=== PATIENT | female | born 1985 | race Caucasian/White ===

== ENCOUNTER 2016-09-13 01:37 | Emergency (ER) | payer OTHER ==
--- NOTE | 2016-09-13 02:29 | ED NURSING NOTES ---
Clinical Report - Nurses [facility] [address] [place] [address] 09/13/2016 1:38 Patient: VIOLETTA GARZA TRIAGE Triage time 0145. Acuity: LEVEL 3. Chief Complaint: FALL while walking, onto the ground and ice. HODA COMA SCORE: [place] Coma Scale: 15- eyes open spontaneously (4); best verbal response- oriented x 4 (5); best motor response- obeys commands (6). --01:58 Tammy Irby R.N. 01:45 09/13/16. BP: deferred. HR: 85. RR: 18 (unlabored). O2 saturation: 99% on room air. Temp: 98.1 F (oral). Pain level now: 9/10. Additional comments: unable to obtain bp. --01:58 Tammy Irby R.N. Weight: 85.7 kg stated. Height/Length: 68 inches Per Patient. BMI: 28.7. --01:45 Tammy Irby R.N. Medications None. --01:55 Tammy Irby R.N. Allergies Sulfa Antibiotics. --01:55 Tammy Irby R.N. Penicillins. --01:55 Tammy Irby R.N. Medication/allergy information source: the patient. --01:58 Tammy Irby R.N. History Arrived by private vehicle. Historian: patient. Accompanied by friend. Primary physician (none). ( pt c/o right rib pain x 1 day. pt states a friend gave her a big hug and picked her up, heard a pop in your ribs, then fell later outside on right side.). This occurred yesterday. Occurred (by a river). No loss of consciousness. Treatment GEOMORPHOLOGY TEACHER: Ice and took ibuprofen. Trauma activation: Pre-hospital notification of patient arrival was not received. PAST MEDICAL HX: Tetanus status: up-to-date. Last normal menstrual period- Aug 07, 2016. Currently . confirmed with home test. SOCIAL HX: Light tobacco smoker (cigarette)- less than 1/2 a pack per day. No alcohol use or drug use. ABUSE ASSESSMENT: No report of abuse. NUTRITIONAL RISK ASSESSMENT: The nutritional risk assessment revealed no deficiencies. FUNCTIONAL ASSESSMENT: Functional assessment: no impairments noted. LEARNING NEEDS ASSESSMENT: The learning needs assessment revealed no barriers. SKIN INTEGRITY ASSESSMENT: Skin integrity risk assessment completed. No skin integrity risk identified. --01:58 Tammy Irby R.N. PROBLEMS: no known problems. ADDITIONAL SURGERIES: Carpal Tunnel Surgery. . Dilatation & Curettage. Laparoscopy. Tubal Ligation. --01:56 Tammy Irby R.N. Interventions ID band on patient. To treatment room. --01:58 Tammy Irby R.N. PHYSICAL ASSESSMENT right rib pain, no bruising noted. pt tender on palpation. GENERAL / NEURO / PSYCH: Alert. Oriented X 4. Appears in pain. RESPIRATORY: Respirations not labored. EXTREMITIES: Extremities exhibit normal ROM. Neuro-vascular status intact to the extremity. SKIN: Skin intact. Skin is warm and dry. --02:02 Tammy Irby R.N. NURSING PROGRESS NOTES Patient gowned. Two patient identifiers checked. Call light placed in reach. Side rails up x 1. Bed placed in lowest position. Brakes of bed on. Patient ready for evaluation. --01:58 Tammy Irby R.N. 02:10 09/13/2016 Hydrocodone-APAP (Hydrocodone-Acetaminophen) PO 5/325 mg Tablets 2 tab given. Allergies verified, confirmed 5 rights and sedative warning given to the patient. --02:11 Penny Olivia R.N. DISPOSITION / DISCHARGE Departure time: 0244. Condition at departure: improved. No learning barriers present. Discharge instructions provided and reviewed with the patient. Reviewed medication(s). Prescription(s) given to the patient (Hydrocodone/APAP). Patient verbalized understanding. Written instructions provided in Pashto. The patient was discharged by the physician. She was discharged home and accompanied by collection clerk. She left the Emergency Department ambulatory and via private vehicle. Bedspread Inspector driving. Medication list reviewed and validated with the patient. --02:46 Tammy Irby R.N. 02:41 09/13/16. BP: deferred. HR: 88. RR: 18 (unlabored). O2 saturation: 96% on room air. Temp: 98 F (oral). Pain level now: 01/19. Additional comments: pt refused bp. --02:46 Tammy Irby R.N. Locked/Released at 09/13/2016 5:15 by Tammy Irby R.N.
--- NOTE | 2016-09-13 02:29 | ED NURSING NOTES ---
Clinical Report - Nurses [facility] [address] [place] [address] 09/13/2016 1:38 Patient: VIOLETTA GARZA TRIAGE Triage time 0145. Acuity: LEVEL 3. Chief Complaint: FALL while walking, onto the ground and ice. HODA COMA SCORE: [place] Coma Scale: 15- eyes open spontaneously (4); best verbal response- oriented x 4 (5); best motor response- obeys commands (6). --01:58 Tammy Irby R.N. 01:45 09/13/16. BP: deferred. HR: 85. RR: 18 (unlabored). O2 saturation: 99% on room air. Temp: 98.1 F (oral). Pain level now: 9/10. Additional comments: unable to obtain bp. --01:58 Tammy Irby R.N. Weight: 85.7 kg stated. Height/Length: 68 inches Per Patient. BMI: 28.7. --01:45 Tammy Irby R.N. Medications None. --01:55 Tammy Irby R.N. Allergies Sulfa Antibiotics. --01:55 Tammy Irby R.N. Penicillins. --01:55 Tammy Irby R.N. Medication/allergy information source: the patient. --01:58 Tammy Irby R.N. History Arrived by private vehicle. Historian: patient. Accompanied by friend. Primary physician (none). ( pt c/o right rib pain x 1 day. pt states a friend gave her a big hug and picked her up, heard a pop in your ribs, then fell later outside on right side.). This occurred yesterday. Occurred (by a river). No loss of consciousness. Treatment SEE SUPERVISOR: Ice and took ibuprofen. Trauma activation: Pre-hospital notification of patient arrival was not received. PAST MEDICAL HX: Tetanus status: up-to-date. Last normal menstrual period- Aug 07, 2016. Currently . confirmed with home test. SOCIAL HX: Light tobacco smoker (cigarette)- less than 1/2 a pack per day. No alcohol use or drug use. ABUSE ASSESSMENT: No report of abuse. NUTRITIONAL RISK ASSESSMENT: The nutritional risk assessment revealed no deficiencies. FUNCTIONAL ASSESSMENT: Functional assessment: no impairments noted. LEARNING NEEDS ASSESSMENT: The learning needs assessment revealed no barriers. SKIN INTEGRITY ASSESSMENT: Skin integrity risk assessment completed. No skin integrity risk identified. --01:58 Tammy Irby R.N. PROBLEMS: no known problems. ADDITIONAL SURGERIES: Carpal Tunnel Surgery. . Dilatation & Curettage. Laparoscopy. Tubal Ligation. --01:56 Tammy Irby R.N. Interventions ID band on patient. To treatment room. --01:58 Tammy Irby R.N. PHYSICAL ASSESSMENT right rib pain, no bruising noted. pt tender on palpation. GENERAL / NEURO / PSYCH: Alert. Oriented X 4. Appears in pain. RESPIRATORY: Respirations not labored. EXTREMITIES: Extremities exhibit normal ROM. Neuro-vascular status intact to the extremity. SKIN: Skin intact. Skin is warm and dry. --02:02 Tammy Irby R.N. NURSING PROGRESS NOTES Patient gowned. Two patient identifiers checked. Call light placed in reach. Side rails up x 1. Bed placed in lowest position. Brakes of bed on. Patient ready for evaluation. --01:58 Tammy Irby R.N. 02:10 09/13/2016 Hydrocodone-APAP (Hydrocodone-Acetaminophen) PO 5/325 mg Tablets 2 tab given. Allergies verified, confirmed 5 rights and sedative warning given to the patient. --02:11 Penny Olivia R.N. DISPOSITION / DISCHARGE Departure time: 0244. Condition at departure: improved. No learning barriers present. Discharge instructions provided and reviewed with the patient. Reviewed medication(s). Prescription(s) given to the patient (Hydrocodone/APAP). Patient verbalized understanding. Written instructions provided in Arabic. The patient was discharged by the physician. She was discharged home and accompanied by python programmer. She left the Emergency Department ambulatory and via private vehicle. Electronic Test Technician driving. Medication list reviewed and validated with the patient. --02:46 Tammy Irby R.N. 02:41 09/13/16. BP: deferred. HR: 88. RR: 18 (unlabored). O2 saturation: 96% on room air. Temp: 98 F (oral). Pain level now: 01/19. Additional comments: pt refused bp. --02:46 Tammy Irby R.N. Locked/Released at 09/13/2016 5:15 by Tammy Irby R.N.
--- NOTE | 2016-09-13 02:29 | ED ORDER SUMMARY ---
..... Patient: VIOLETTA GARZA OrderSheet [facility] VisitID: [id number] [place] [address] 31y, F Registration Date/Time: 09/13/2016 ORDER SHEET Weight: 85.7 kg (stated) Allergies: Sulfa Antibiotics, Penicillins GENERAL ORDERS: Chest 1V Urgent (02:07 09/13/2016 Alfa ANGULO) (2:11 RCollier R.N.) MEDICATION ORDERS: Hydrocodone-APAP PO 10/650 mg (NOW, HIGH ALERT MEDICATION) (02:07 09/13/2016 Alfa ANGULO) (Ack 2:08 RCollier R.N.) (2:11 Barbra R.N.) IV FLUIDS: ORDER SHEET NOTES: [Electronically signed by Tammy Irby R.N. (05:15 09/13/2016)] [Electronically signed by Rhoda Daniels MD (18:02 09/18/2016)] [Electronically locked/signed by Tammy Irby R.N. (05:15 09/13/2016)]
--- NOTE | 2016-09-13 02:29 | ED CLINICAL REPORT ---
Clinical Report - Physicians/Mid Levels [facility] [address] [place] [address] 09/13/2016 1:38 Patient: VIOLETTA GARZA Time Seen: 01:43. Arrived- By private vehicle. Historian- patient. HISTORY OF PRESENT ILLNESS Chief Complaint: CHEST PAIN. At its maximum, severity described as moderate. When seen in the E.D., severity described as moderate. Modifying factors- worsened by movement and deep breaths. Not relieved by anything. This started about 2 days ago and is still present. Onset during trauma, as above. It is described as sharp and "pain" and it is described as located in the right chest area. No nausea, vomiting, difficulty breathing or diaphoresis. (PT states a friend gave her a big hug, and she felt a "pop" and pain under her R breast. Then, yesterday, she fell onto her R side, and the pain became worse in the same spot.). Similar symptoms previously: None. Recent medical care: Not recently seen/assessed. REVIEW OF SYSTEMS No fever, chills, cough, pedal edema or calf pain. No fainting episodes, headache, sore throat, blurred vision or abdominal pain. No black stools, difficulty with urination, skin rash, enlarged lymph nodes or joint pain. No bloody stools. All systems otherwise negative, except as recorded above. PAST HISTORY Problems: no known problems. Additional Surgeries: Carpal Tunnel Surgery. . Dilatation & Curettage. Laparoscopy. Tubal Ligation. Medications: None. Allergies: Penicillins. Sulfa Antibiotics. SOCIAL HISTORY Smoker- current status unknown. No alcohol use or drug use. ADDITIONAL NOTES The nursing notes have been reviewed. PHYSICAL EXAM Vital Signs: 09/13/2016 01:45 HR: 85. RR: 18. O2 saturation: 99%. Temp: 98.1 F. Pain level now: 9/10. Have been reviewed. Appearance: Alert. Oriented X3. No acute distress. (Pt appears moderately uncomfortable.). Eyes: Pupils equal, round and reactive to light. Eyes normal inspection. ENT: Nose normal. Neck: Normal inspection. Neck supple. CVS: Normal heart rate and rhythm. Heart sounds normal. Pulses normal. Respiratory: No respiratory distress. Chest pain reproducible with palpation of the anterior chest wall and ribs, with movement of the right arm and with deep breathing. Breath sounds normal. Abdomen: Soft and nontender. Back: Normal external inspection. Skin: Skin warm and dry. Normal skin color. No rash. Normal skin turgor. Extremities: Extremities exhibit normal ROM. No lower extremity edema. Neuro: Oriented X 3. No motor deficit. No sensory deficit. LABS, X-RAYS, AND EKG Chest X-ray: No acute disease. Normal lung markings present. Normal heart size. Mediastinum normal. Great vessels normal. Soft tissues normal. No infiltrate. No bony lesion present. No rib fractures. Views: AP (portable). Technique: good. The X-rays were independently viewed by me and interpreted contemporaneously by me. Prior films were not available for comparison. Pulse Oximetry: 09/13/2016 01:45 O2 saturation: 99%. (FIO2 - room air). Interpretation: normal. PROGRESS AND PROCEDURES Course of Care: Pt was given a dose of Vicodin for her pain, and x-rays were negative. Patient and family counseled in person regarding the patient's stable condition, test results, diagnosis and need for follow-up. Concerns were addressed. Old medical records reviewed. Disposition: Discharged. Condition: stable. CLINICAL IMPRESSION Chest wall pain INSTRUCTIONS (Your x-ray looks good--no broken ribs.). Warnings: SEDATIVE MEDICATION: You were given sedative medication during your visit. Do not drive or operate dangerous machinery for 6 hours. GENERAL WARNINGS: Return or contact your physician immediately if your condition worsens or changes unexpectedly, if not improving as expected, or if other problems arise. Prescription Medications: Hydrocodone/APAP 5mg / 325mg: take 1 orally every 6 hours as needed for pain. Dispense five (5). No refill. Follow-up: Follow up with doctor as needed. Call for an appointment. Understanding of the discharge instructions verbalized by patient. Discharge instructions reviewed with and understanding was verbalized by county extension agent. (Electronically signed by Rhoda Daniels MD 09/18/2016 18:02)
--- NOTE | 2016-09-13 02:29 | ED ORDER SUMMARY ---
..... Patient: VIOLETTA GARZA OrderSheet [facility] VisitID: [id number] [place] [address] 31y, F Registration Date/Time: 09/13/2016 ORDER SHEET Weight: 85.7 kg (stated) Allergies: Sulfa Antibiotics, Penicillins GENERAL ORDERS: Chest 1V Urgent (02:07 09/13/2016 Alfa ANGULO) (2:11 RCollier R.N.) MEDICATION ORDERS: Hydrocodone-APAP PO 10/650 mg (NOW, HIGH ALERT MEDICATION) (02:07 09/13/2016 Alfa ANGULO) (Ack 2:08 RCollier R.N.) (2:11 Barbra R.N.) IV FLUIDS: ORDER SHEET NOTES: [Electronically signed by Tammy Irby R.N. (05:15 09/13/2016)] [Electronically signed by Rhoda Daniels MD (18:02 09/18/2016)] [Electronically locked/signed by Tammy Irby R.N. (05:15 09/13/2016)]
--- NOTE | 2016-09-13 02:29 | ED CLINICAL REPORT ---
Clinical Report - Physicians/Mid Levels [facility] [address] [place] [address] 09/13/2016 1:38 Patient: VIOLETTA GARZA Time Seen: 01:43. Arrived- By private vehicle. Historian- patient. HISTORY OF PRESENT ILLNESS Chief Complaint: CHEST PAIN. At its maximum, severity described as moderate. When seen in the E.D., severity described as moderate. Modifying factors- worsened by movement and deep breaths. Not relieved by anything. This started about 2 days ago and is still present. Onset during trauma, as above. It is described as sharp and "pain" and it is described as located in the right chest area. No nausea, vomiting, difficulty breathing or diaphoresis. (PT states a friend gave her a big hug, and she felt a "pop" and pain under her R breast. Then, yesterday, she fell onto her R side, and the pain became worse in the same spot.). Similar symptoms previously: None. Recent medical care: Not recently seen/assessed. REVIEW OF SYSTEMS No fever, chills, cough, pedal edema or calf pain. No fainting episodes, headache, sore throat, blurred vision or abdominal pain. No black stools, difficulty with urination, skin rash, enlarged lymph nodes or joint pain. No bloody stools. All systems otherwise negative, except as recorded above. PAST HISTORY Problems: no known problems. Additional Surgeries: Carpal Tunnel Surgery. . Dilatation & Curettage. Laparoscopy. Tubal Ligation. Medications: None. Allergies: Penicillins. Sulfa Antibiotics. SOCIAL HISTORY Smoker- current status unknown. No alcohol use or drug use. ADDITIONAL NOTES The nursing notes have been reviewed. PHYSICAL EXAM Vital Signs: 09/13/2016 01:45 HR: 85. RR: 18. O2 saturation: 99%. Temp: 98.1 F. Pain level now: 9/10. Have been reviewed. Appearance: Alert. Oriented X3. No acute distress. (Pt appears moderately uncomfortable.). Eyes: Pupils equal, round and reactive to light. Eyes normal inspection. ENT: Nose normal. Neck: Normal inspection. Neck supple. CVS: Normal heart rate and rhythm. Heart sounds normal. Pulses normal. Respiratory: No respiratory distress. Chest pain reproducible with palpation of the anterior chest wall and ribs, with movement of the right arm and with deep breathing. Breath sounds normal. Abdomen: Soft and nontender. Back: Normal external inspection. Skin: Skin warm and dry. Normal skin color. No rash. Normal skin turgor. Extremities: Extremities exhibit normal ROM. No lower extremity edema. Neuro: Oriented X 3. No motor deficit. No sensory deficit. LABS, X-RAYS, AND EKG Chest X-ray: No acute disease. Normal lung markings present. Normal heart size. Mediastinum normal. Great vessels normal. Soft tissues normal. No infiltrate. No bony lesion present. No rib fractures. Views: AP (portable). Technique: good. The X-rays were independently viewed by me and interpreted contemporaneously by me. Prior films were not available for comparison. Pulse Oximetry: 09/13/2016 01:45 O2 saturation: 99%. (FIO2 - room air). Interpretation: normal. PROGRESS AND PROCEDURES Course of Care: Pt was given a dose of Vicodin for her pain, and x-rays were negative. Patient and family counseled in person regarding the patient's stable condition, test results, diagnosis and need for follow-up. Concerns were addressed. Old medical records reviewed. Disposition: Discharged. Condition: stable. CLINICAL IMPRESSION Chest wall pain INSTRUCTIONS (Your x-ray looks good--no broken ribs.). Warnings: SEDATIVE MEDICATION: You were given sedative medication during your visit. Do not drive or operate dangerous machinery for 6 hours. GENERAL WARNINGS: Return or contact your physician immediately if your condition worsens or changes unexpectedly, if not improving as expected, or if other problems arise. Prescription Medications: Hydrocodone/APAP 5mg / 325mg: take 1 orally every 6 hours as needed for pain. Dispense five (5). No refill. Follow-up: Follow up with doctor as needed. Call for an appointment. Understanding of the discharge instructions verbalized by patient. Discharge instructions reviewed with and understanding was verbalized by cloth shrinking supervisor. (Electronically signed by Rhoda Daniels MD 09/18/2016 18:02)
--- NOTE | 2016-09-13 04:45 | DIAGNOSTIC IMAGING REPORT ---
PROCEDURE: XR CHEST 1 VIEW INDICATION: Trauma. Right anterior chest pain. TECHNIQUE: Portable AP view (0215 hours). Patient (shielded). COMPARISON: None. FINDINGS: Lungs are clear. Heart and mediastinum are normal. Thorax is normal. IMPRESSION: 1. Negative chest.
--- NOTE | 2016-09-18 18:03 | ED MAR SUMMARY ---
..... Medication Administration Record [facility] [address] [place] [address] Patient: VIOLETTA GARZA Visit ID: [id number] 31y, F Weight: 85.7 kg Height/Length: 68 in BMI: 28.7 ALLERGIES: Penicillins, Sulfa Antibiotics Given 02:10 09/13/2016 Penny Olivia, RFanyNFany Medication Administered: HYDROCODONE-APAP [PO] (HYDROCODONE-ACETAMINOPHEN), Dose: 2 tab 5/325 mg Tablets PO. Medication Ordered: Hydrocodone-APAP PO 10/650 mg (NOW, HIGH ALERT MEDICATION).
--- NOTE | 2016-09-18 18:03 | ED MAR SUMMARY ---
..... Medication Administration Record [facility] [address] [place] [address] Patient: VIOLETTA GARZA Visit ID: [id number] 31y, F Weight: 85.7 kg Height/Length: 68 in BMI: 28.7 ALLERGIES: Penicillins, Sulfa Antibiotics Given 02:10 09/13/2016 Penny Olivia, RFanyNFany Medication Administered: HYDROCODONE-APAP [PO] (HYDROCODONE-ACETAMINOPHEN), Dose: 2 tab 5/325 mg Tablets PO. Medication Ordered: Hydrocodone-APAP PO 10/650 mg (NOW, HIGH ALERT MEDICATION).
--- NOTE | 2016-09-18 18:03 | ED MED RECONCILIATION SUMMARY ---
Patient: VIOLETTA GARZA Medication Reconciliation Report [facility] VisitID: [id number] [place] [address] 31y, F Registration Date/Time: 09/13/2016 Weight: 85.7 kg Height/Length: 68 in. BMI: 28.7 ALLERGIES: Penicillins, Sulfa Antibiotics The patient's Home Medications are listed below: NONE. The source(s) of the original Home Medication information: patient The following Medications were given to the patient in the Emergency Department: Hydrocodone-APAP [PO] PO 2 tab, administered: 09/13/2016 2:10:00 AM The following Medications were prescribed to the patient: Hydrocodone/APAP 5mg / 325mg: take 1 orally every 6 hours as needed for pain. Dispense five (5). No refill. -- Rhoda Daniels MD
--- NOTE | 2016-09-18 18:03 | ED DISCHARGE INSTRUCTIONS ---
Patient: VIOLETTA GARZA General Instructions [facility] VisitID: [id number] [place] [address] 31y, F Registration Date/Time: 09/13/2016 Chest wall pain INSTRUCTIONS (Your x-ray looks good--no broken ribs.). Warnings: SEDATIVE MEDICATION: You were given sedative medication during your visit. Do not drive or operate dangerous machinery for 6 hours. GENERAL WARNINGS: Return or contact your physician immediately if your condition worsens or changes unexpectedly, if not improving as expected, or if other problems arise. Prescription Medications: Hydrocodone/APAP 5mg / 325mg: take 1 orally every 6 hours as needed for pain. Dispense five (5). No refill. Follow-up: Follow up with doctor as needed. Call for an appointment. Understanding of the discharge instructions verbalized by patient. Discharge instructions reviewed with and understanding was verbalized by wireless manager. ADDITIONAL INFORMATION Rib Contusion A rib contusion is a bruise to one or more rib bones. It may cause pain, tenderness, swelling and a purplish discoloration. There may be a sharp pain with each breath. A rib contusion takes a few days, to a few weeks to heal. A small crack (fracture) in the rib may cause the same symptoms as a rib contusion. The small crack may not be seen on a chest x-ray. However, the treatment of these two conditions are the same. Home Care: Rest. You should not be doing any heavy lifting or strenuous exertion, or any activity that causes pain. Apply an ice pack (ice cubes in a plastic bag, wrapped in a towel) over the injured area for 20 minutes every 1-2 hours the first day. Continue with ice packs 3-4 times a day for the next two days, then as needed for the relief of pain and swelling. You may use acetaminophen (Tylenol) or ibuprofen (Motrin, Advil) to control pain, unless another pain medicine was prescribed. [NOTE: If you have chronic liver or kidney disease or ever had a stomach ulcer or GI bleeding, talk with your doctor before using these medicines.] Follow Up with your doctor during the next week or as directed. Get Prompt Medical Attention if any of the following occur: Shortness of breath Increasing chest pain with breathing or congested cough Dizziness, weakness or fainting New or worsening of abdominal pain Fever of 100.4F (38C) or higher, or as directed by your healthcare provider You have been given the following additional information: Rib Contusion (Electronically signed by Rhoda Daniels MD 09/18/2016 18:02)
--- NOTE | 2016-09-18 18:03 | ED DISCHARGE INSTRUCTIONS ---
Patient: VIOLETTA GARZA General Instructions [facility] VisitID: [id number] [place] [address] 31y, F Registration Date/Time: 09/13/2016 Chest wall pain INSTRUCTIONS (Your x-ray looks good--no broken ribs.). Warnings: SEDATIVE MEDICATION: You were given sedative medication during your visit. Do not drive or operate dangerous machinery for 6 hours. GENERAL WARNINGS: Return or contact your physician immediately if your condition worsens or changes unexpectedly, if not improving as expected, or if other problems arise. Prescription Medications: Hydrocodone/APAP 5mg / 325mg: take 1 orally every 6 hours as needed for pain. Dispense five (5). No refill. Follow-up: Follow up with doctor as needed. Call for an appointment. Understanding of the discharge instructions verbalized by patient. Discharge instructions reviewed with and understanding was verbalized by [employer] women[employer] garment [employer]. ADDITIONAL INFORMATION Rib Contusion A rib contusion is a bruise to one or more rib bones. It may cause pain, tenderness, swelling and a purplish discoloration. There may be a sharp pain with each breath. A rib contusion takes a few days, to a few weeks to heal. A small crack (fracture) in the rib may cause the same symptoms as a rib contusion. The small crack may not be seen on a chest x-ray. However, the treatment of these two conditions are the same. Home Care: Rest. You should not be doing any heavy lifting or strenuous exertion, or any activity that causes pain. Apply an ice pack (ice cubes in a plastic bag, wrapped in a towel) over the injured area for 20 minutes every 1-2 hours the first day. Continue with ice packs 3-4 times a day for the next two days, then as needed for the relief of pain and swelling. You may use acetaminophen (Tylenol) or ibuprofen (Motrin, Advil) to control pain, unless another pain medicine was prescribed. [NOTE: If you have chronic liver or kidney disease or ever had a stomach ulcer or GI bleeding, talk with your doctor before using these medicines.] Follow Up with your doctor during the next week or as directed. Get Prompt Medical Attention if any of the following occur: Shortness of breath Increasing chest pain with breathing or congested cough Dizziness, weakness or fainting New or worsening of abdominal pain Fever of 100.4F (38C) or higher, or as directed by your healthcare provider You have been given the following additional information: Rib Contusion (Electronically signed by Rhoda Daniels MD 09/18/2016 18:02)
--- NOTE | 2016-09-18 18:03 | ED MED RECONCILIATION SUMMARY ---
Patient: VIOLETTA GARZA Medication Reconciliation Report [facility] VisitID: [id number] [place] [address] 31y, F Registration Date/Time: 09/13/2016 Weight: 85.7 kg Height/Length: 68 in. BMI: 28.7 ALLERGIES: Penicillins, Sulfa Antibiotics The patient's Home Medications are listed below: NONE. The source(s) of the original Home Medication information: patient The following Medications were given to the patient in the Emergency Department: Hydrocodone-APAP [PO] PO 2 tab, administered: 09/13/2016 2:10:00 AM The following Medications were prescribed to the patient: Hydrocodone/APAP 5mg / 325mg: take 1 orally every 6 hours as needed for pain. Dispense five (5). No refill. -- Rhoda Daniels MD
== END 2016-09-13 02:44 | disposition home or self-care (01) ==
LOC: ED SRH 01:37
DX: S29.9XXA Unspecified injury of thorax, initial encounter (principal); W19.XXXA Unspecified fall, initial encounter; Z88.2 Allergy status to sulfonamides; Z88.1 Allergy status to other antibiotic agents; Y99.9 Unspecified external cause status; Y92.9 Unspecified place or not applicable; Y93.9 Activity, unspecified